=== PATIENT | male | born 1985 | race Caucasian/White ===

== ENCOUNTER 2019-01-04 12:17 | Emergency (ER) | payer OTHER ==
[~2019-01-04] VITALS: Ht 175.3 cm; Wt 87.1 kg
[2019-01-04 12:25] VITALS: BP 126/75
== END 2019-01-04 14:06 | disposition home or self-care (01) ==
LOC: ER 12:17
DX: I82.812 Embolism and thrombosis of superficial veins of left lower extremity (principal)
CPT/HCPCS: 93971-TC